=== PATIENT | female | born 1930 | race Caucasian/White ===

== ENCOUNTER 2017-10-16 09:40 | Emergency (ER) | payer MEDICARE ==
[2017-10-16 11:21] LABS: BASOPHILS 0.4 % (0-2); EOSINOPHILS 7.1 % (0-7); HEMATOCRIT 35.9 % (36.0-48.0); HEMOGLOBIN 11.8 g/dL (12-16); IMMATURE GRANULOCYTES 0.4 % (0-5); LYMPHOCYTES 26.6 % (15-50); MCH 29.9 pg (26.0-34.0); MCHC 32.9 g/dL (31.0-37.0); MCV 91.1 fL (80.0-100.0); MEAN PLATELET VOLUME 10.9 fL (7.4-10.4); NEUTROPHILS 52.5 % (40-80); RBC 3.94 10x6/uL (4.00-5.40); RDW 13.8 % (11.5-14.5); WBC 8.6 10x3/uL (4.8-10.8)
[2017-10-16 11:24] LABS: PLATELET COUNT 300 10x3/uL (130-400)
[2017-10-16 11:34] LABS: ALBUMIN 2.8 g/dL (3.4-5.0); ANION GAP 8.2 mmol/L (8-16); BILIRUBIN - TOTAL 0.43 mg/dL (0.2-1.3); CARBON DIOXIDE 32.8 mmol/L (21.0-32.0); CREATININE - SERUM 1.3 mg/dL (0.6-1.3); PROTEIN - SERUM 7.4 g/dL (6.4-8.2)
== END 2017-10-16 12:27 | disposition home or self-care (01) ==
LOC: D.ER 09:40
PROVIDERS: Physician Assistant
DX: K59.00 Constipation, unspecified (principal); R10.31 Right lower quadrant pain; S22.089A Unspecified fracture of T11-T12 vertebra, initial encounter for closed fracture; X58.XXXA Exposure to other specified factors, initial encounter; Y93.9 Activity, unspecified; Y92.9 Unspecified place or not applicable

== ENCOUNTER 2017-10-30 13:34 | Emergency (ER) | payer MEDICARE ==
[~2017-10-30] VITALS: Ht 160 cm; Wt 75.0 kg
[2017-10-30 13:41] VITALS: Ht 160 cm; Wt 75.0 kg
[2017-10-30] MEDS ORDERED: ROBAXIN500 MG PO (13:43)
[2017-10-30] MEDS ORDERED: ULTRAM50 MG PO ×2 (13:43→20:11)
[2017-10-30] MEDS ORDERED: VOLTAREN100 GM TOPICAL (13:44)
[2017-10-30] MEDS ORDERED: CO Q-10100 MG PO (13:44)
[2017-10-30 14:32] LABS: BASOPHILS 0.2 % (0-2); EOSINOPHILS 0.3 % (0-7); HEMATOCRIT 40.3 % (36.0-48.0); HEMOGLOBIN 13.6 g/dL (12-16); IMMATURE GRANULOCYTES 0.2 % (0-5); LYMPHOCYTES 25.3 % (15-50); MCH 30.2 pg (26.0-34.0); MCHC 33.7 g/dL (31.0-37.0); MCV 89.4 fL (80.0-100.0); MEAN PLATELET VOLUME 10.7 fL (7.4-10.4); MONOCYTES 10.6 % (2-11); NEUTROPHILS 63.4 % (40-80); RBC 4.51 10x6/uL (4.00-5.40); RDW 13.5 % (11.5-14.5); WBC 9.7 10x3/uL (4.8-10.8)
[2017-10-30 14:41] LABS: PLATELET COUNT 387 10x3/uL (130-400)
[2017-10-30 15:19] LABS: APPEARANCE CLEAR (CLEAR); BILIRUBIN NEGATIVE (NEGATIVE); COLOR YELLOW (YELLOW); GLUCOSE NEGATIVE (NEGATIVE); KETONE NEGATIVE (NEGATIVE); NITRITE NEGATIVE (NEGATIVE); PROTEIN NEGATIVE (NEGATIVE); UROBILINOGEN NORMAL (NORMAL)
[2017-10-30 15:21] LABS: BACTERIA MODERATE /hpf (NONE SEEN); EPITHELIAL CELLS 0-5 /hpf (0-5); RED CELLS - URINE 0-5 /hpf (0-5)
[2017-10-30 15:23] LABS: ALBUMIN 3.4 g/dL (3.4-5.0); ANION GAP 14.1 mmol/L (8-16); BILIRUBIN - TOTAL 0.5 mg/dL (0.2-1.3); CALCIUM 9.3 mg/dL (8.5-10.1); CARBON DIOXIDE 26.5 mmol/L (21.0-32.0); CREATININE - SERUM 1.1 mg/dL (0.6-1.3); POTASSIUM - SERUM 3.6 mmol/L (3.5-5.1)
[2017-10-30] MEDS ORDERED: ZOFRAN ODT4 MG/UDTAB PO (20:21)
[2017-10-30 20:28] VITALS: BP 184/77
== END 2017-10-30 20:28 | disposition home or self-care (01) ==
LOC: D.ER 13:34
PROVIDERS: Family Medicine
DX: R10.32 Left lower quadrant pain (principal); M54.5 Low back pain

== ENCOUNTER 2018-03-25 00:14 | Observation (INO) | payer MEDICARE ==
[~2018-03-25] VITALS: Ht 160 cm; Wt 59.1 kg
[2018-03-25] VITALS (9 sets, daily range): BP systolic 134–155; BP diastolic 49–77; Ht 160 cm; Wt 59.1 kg
--- NOTE | ~2018-03-25 | DS ---
PATIENT:TOM THURMAN :30 MEDICAL RECORD: [id number] DISCHARGE SUMMARY ADMISSION DATE: 03/25/18 DISCHARGE DATE: 03/26/18 ADMISSION DATE: 03/25/2018 The day she left the hospital was 03/26/2018. ADMIT DIAGNOSES: She had benign positional vertigo, but she also had heart failure, chronic pain, low back pain, anxiety. During her stay, the patient's troponin trended up indicating she may have a fma-OV-xadirvnmm myocardial infarction. Cardiology was consulted, but the patient left AMA before cardiology could see her. HOSPITAL COURSE: The patient's vertigo resolved with an Gia maneuver by physical therapy, then cardiology was consulted for the concern for unk-QV-krhctmmin ID and then the patient left against medical advice before cardiology could see her. DISPOSITION: The patient left the hospital against medical advice. TRANSINT:[id number] Voice Confirmation ID: [id number] DOCUMENT ID: [id number] DAVIE WARREN MD at 0950 CC: [id number] DICTATION DATE: 04/04/18 142 PICKER OPERATOR: 04/04/18 2329 DIS IN 03/26/18 [facility] [address] [place] [address]
--- NOTE | ~2018-03-25 | MORECARE ---
CASE MANAGEMENT DISCHARGE SUMMARY PATIENT: TOM THURMAN UNIT: [id number] ADM DATE: 03/25/18 AGE: 87 : 30 SEX: F ROOM/BED: D.2113 AUTHOR: FRANK YOUNG PHYSICIAN: REFERRING PHYSICIAN: JUAN FRANCISCO NOLEN MD DATE OF SERVICE: 03/26/18 Discharge Plan Patient Name: TOM THURMAN Facility: [facility]:[place] : 1930 Planned Disposition: Left Against Medical Advice Anticipated Discharge Date: 03/26/18 Discharge Date: Expected LOS: 1 Initial Reviewer: [email or web address] Initial Review Date: 03/26/2018 Generated: 03/26/18 11:31 am Patient Name: TOM THURMAN Page [id number] at 1031 All edits/amendments must be made on the electronic document DICTATION DATE: 03/26/18 1031 CLINICAL RECRUITER: [email or web address] 03/26/18 1031 RPT#: [id number] DC DATE: STATUS: ADM IN [facility] [address] [place] [address] END OF REPORT
[~2018-03-25 00:14] MED LIST: CO Q-10100 MG PO; ROBAXIN500 MG PO; ULTRAM50 MG PO; VOLTAREN100 GM TOPICAL; ZOFRAN ODT4 MG/UDTAB PO
[2018-03-25 00:50] LABS: BASOPHILS 0.4 % (0-2); EOSINOPHILS 3.7 % (0-7); HEMATOCRIT 37.2 % (36.0-48.0); HEMOGLOBIN 12.2 g/dL (12-16); IMMATURE GRANULOCYTES 0.2 % (0-5); LYMPHOCYTES 21.5 % (15-50); MCH 30.8 pg (26.0-34.0); MCHC 32.8 g/dL (31.0-37.0); MCV 93.9 fL (80.0-100.0); MEAN PLATELET VOLUME 11.3 fL (7.4-10.4); NEUTROPHILS 64.2 % (40-80); PLATELET COUNT 277 10x3/uL (130-400); RBC 3.96 10x6/uL (4.00-5.40); RDW 14.4 % (11.5-14.5); WBC 10.7 10x3/uL (4.8-10.8)
[2018-03-25] MEDS ORDERED: ANTIVERT12.5 MG PO (01:32)
[2018-03-25 01:44] LABS: ANION GAP 11.1 mmol/L (8-16); BILIRUBIN - TOTAL 0.33 mg/dL (0.2-1.3); CALCIUM 8.7 mg/dL (8.5-10.1); CREATININE - SERUM 1.1 mg/dL (0.6-1.3); POTASSIUM - SERUM 4.1 mmol/L (3.5-5.1); PROTEIN - SERUM 7.1 g/dL (6.4-8.2)
[2018-03-25 01:50] LABS: TROPONIN-I 0.181 ng/mL (0.000-0.060)
[2018-03-25 04:09] LABS: APPEARANCE CLEAR (CLEAR); BILIRUBIN NEGATIVE (NEGATIVE); COLOR YELLOW (YELLOW); GLUCOSE NEGATIVE (NEGATIVE); KETONE NEGATIVE (NEGATIVE); NITRITE NEGATIVE (NEGATIVE); PROTEIN NEGATIVE (NEGATIVE); SPECIFIC GRAVITY 1.005 (1.005-1.020); UROBILINOGEN NORMAL (NORMAL)
[2018-03-26 01:46] VITALS: BP 140/66
[2018-03-26] MEDS ORDERED: BAYER CHEWABLE81 MG PO (05:18)
[2018-03-26 05:56] LABS: BASOPHILS 0.3 % (0-2); EOSINOPHILS 4.3 % (0-7); HEMATOCRIT 37.7 % (36.0-48.0); HEMOGLOBIN 12.4 g/dL (12-16); IMMATURE GRANULOCYTES 0.3 % (0-5); LYMPHOCYTES 25.9 % (15-50); MCH 30.9 pg (26.0-34.0); MCHC 32.9 g/dL (31.0-37.0); MEAN PLATELET VOLUME 11.4 fL (7.4-10.4); MONOCYTES 8.9 % (2-11); NEUTROPHILS 60.3 % (40-80); PLATELET COUNT 292 10x3/uL (130-400); RBC 4.01 10x6/uL (4.00-5.40); RDW 14.6 % (11.5-14.5); WBC 10.1 10x3/uL (4.8-10.8)
[2018-03-26 06:25] LABS: ALBUMIN 2.8 g/dL (3.4-5.0); ANION GAP 9.3 mmol/L (8-16); BILIRUBIN - TOTAL 0.38 mg/dL (0.2-1.3); CALCIUM 8.9 mg/dL (8.5-10.1); CARBON DIOXIDE 30.7 mmol/L (21.0-32.0); CREATININE - SERUM 1.2 mg/dL (0.6-1.3); PROTEIN - SERUM 6.7 g/dL (6.4-8.2)
[2018-03-26 06:45] VITALS: BP 132/75
[2018-03-26 08:42] VITALS: BP 147/67
== END 2018-03-26 11:08 | disposition left against medical advice (07) ==
LOC: D.ER 00:14 → D.M2 03:09 → OBSVTIME 03:09 → D.M2 03:09
PROVIDERS: Emergency Medicine; Family Medicine
DX: H81.10 Benign paroxysmal vertigo, unspecified ear (principal); I50.9 Heart failure, unspecified; G89.29 Other chronic pain; M54.5 Low back pain; F41.9 Anxiety disorder, unspecified; R53.83 Other fatigue